=== PATIENT | female | born 1950 ===

== ENCOUNTER 2016-05-18 15:54 | Outpatient (CLI) | payer MEDICARE, BC | END 2016-05-18 15:55 | disposition home or self-care (01) | DX: M17.0 Bilateral primary osteoarthritis of knee (principal) ==

== ENCOUNTER 2016-08-07 08:44 | Inpatient (IN) | payer MEDICARE, BC ==
[~2016-08-07 08:44] MED LIST: ceFAZolin 2 GM/50 ML 50 ML IV ONE
[2016-08-07] MEDS ORDERED: LACTATED RINGERS 1,000 ML IV ONE ×3 (09:30→14:37)
[2016-08-07] MEDS ORDERED: KETOROLAC 15 MG/ML VIAL IVP ONE ×3 (11:45→14:38)
[2016-08-07] MEDS ORDERED: EPINEPHrine 1 MG/ML AMP IVP ONE ×2 (11:45→14:38)
[2016-08-07] MEDS ORDERED: BUPIVACAINE 0.25%-EPI 1:200000 PF 30 ML VIAL SUBQ ONE ×3 (11:45→15:17)
[2016-08-07] MEDS ORDERED: MORPHINE PF 5 MG/10 ML AMP SUBQ ONE ×2 (11:45→14:38)
[2016-08-07] MEDS ORDERED: ROPIVACAINE 0.2% PF 20 ML AMPULE SUBQ ONE ×2 (11:45→14:38)
[2016-08-07] MEDS ORDERED: PHENYLEPHRINE 50 MG/5 ML VIAL IV ONE (13:20)
[2016-08-07] MEDS ORDERED: DEXAMETHASONE 4 MG/ML VIAL IVP ONE (13:20)
[2016-08-07] MEDS ORDERED: KETOROLAC 30 MG/ML VIAL IVP ONE (13:20)
[2016-08-07] MEDS ORDERED: MIDAZOLAM 2 MG/2 ML VIAL IVP ONE (13:20)
[2016-08-07] MEDS ORDERED: ACETAMINOPHEN 1,000 MG/100 ML VIAL IV ONE (13:20)
[2016-08-07] MEDS ORDERED: TRANEXAMIC ACID 1,000 MG/10 ML VIAL IV ONE (13:20)
[2016-08-07] MEDS ORDERED: ePHEDrine 50 MG/ML AMP IVP ONE (13:20)
[2016-08-07] MEDS ORDERED: PROPOFOL 200 MG/20 ML VIAL IVP ONE (13:20)
[2016-08-07] MEDS ORDERED: PROPOFOL 1000 MG/100 ML IV ONE (13:20)
[2016-08-07] MEDS ORDERED: LIDOCAINE-MPF 2% 5 ML VIAL IM ONE (13:20)
--- NOTE | 2016-08-07 15:36 | OPERATIVE REPORT ---
Operative Report - General Admit Date: 08/07/16 Procedure Date: 08/07/16 Planned Procedure: Right Total Hip Arthroplasty Pre-Op Diagnosis: Right Hip Osteoarthritis Post Op Diagnosis: Same. - Procedure Note Primary Surgeon: Joseph Jimenez MD Anesthesia Provider: MD [place] Anesthesia Technique: Combo spinal/epidural, Local, Moderate sedation Pathology: Same. Estimated Blood Loss (in cc): 500 Complications: None. - Other Other Information/Narrative: Fluids: 2300 mL LR. Urine: 350 mL. Implants: G7 OsseoTi Acetabular Shell 4 Hole, 56 mm. G7 Acetabular Liner UHMWPE 36 mm ID Biomet Modular Head Component Standard Neck 36 mm OD Taperloc Porous Coated Stem, 10 x 140 mm, standard offset Disposition: PACU >> MedSur Condition: Stable.
[2016-08-07] MEDS ORDERED: DOCUSATE SODIUM 100 MG CAPSULE PO PRN (15:37)
[2016-08-07] MEDS ORDERED: ACETAMINOPHEN 325 MG TABLET PO PRN (15:37)
[2016-08-07] MEDS ORDERED: PROCHLORPERAZINE 10 MG/2 ML VIAL IVP PRN (15:37)
[2016-08-07] MEDS ORDERED: BISACODYL 10 MG SUPP PR PRN (15:37)
[2016-08-07] MEDS ORDERED: oxyCOD/ACETAMIN 5 MG/325 MG TABLET PO PRN (15:37)
[2016-08-07] MEDS ORDERED: ACETAMINOPHEN 1,000 MG/100 ML 100 ML IV PRN (15:37)
[2016-08-07] MEDS ORDERED: BISACODYL 5 MG TABLET PO PRN (15:37)
[2016-08-07] MEDS ORDERED: ONDANSETRON 4 MG/2 ML VIAL IVP PRN (15:37)
[2016-08-07] MEDS ORDERED: SODIUM CHLORIDE FLUSH 0.9% 10 ML SYRINGE IVP PRN (15:37)
[2016-08-07] MEDS ORDERED: ACYCLOVIR TOP PRN (15:41)
[2016-08-07] MEDS ORDERED: ALPRAZolam 0.25 MG TABLET PO PRN (15:41)
[2016-08-07] MEDS ORDERED: ALBUTEROL NEB 2.5 MG/3 ML INH PRN (15:41)
[2016-08-07] MEDS ORDERED: HYDROmorphone 1 MG/ML SYRINGE ONE (16:02)
[2016-08-07] MEDS: D5.45NS W/20 MEQ KCL 1,000 ML IV SCH (17:52)
[2016-08-07] MEDS ORDERED: diazePAM INJ 5 MG/ML SYRINGE IVP ONE (19:10)
[2016-08-07] MEDS: HYDROcod/ACETAM 5/325 MG TABLET PO PRN (19:15)
[2016-08-07] MEDS: DOXEPIN 10 MG CAPSULE PO SCH (20:36)
[2016-08-07] MEDS: GABAPENTIN 300 MG CAPSULE PO SCH (20:37)
[2016-08-07] MEDS: ceFAZolin 2 GM/50 ML 50 ML IV SCH (20:37)
[2016-08-07] MEDS: SODIUM CHLORIDE FLUSH 0.9% 10 ML SYRINGE IVP SCH (20:38)
[2016-08-07] MEDS: KETOROLAC 30 MG/ML VIAL IVP PRN (20:40)
--- NOTE | 2016-08-07 21:27 | XRAY Preliminary Report ---
Exam: XR Hip w/Pelvis 2-3V RT IMPRESSION: Satisfactory postoperative alignment after right hip joint replacement. RAD[facility] SITE ID: [id number]
--- NOTE | 2016-08-07 21:29 | XRAY Report ---
EXAM: RIGHT HIP AND PELVIS RADIOGRAPHY EXAM DATE: 08/07/2016 08:55 PM. HISTORY: Status Post Right Total Hip Arthroplasty. COMPARISONS: None. TECHNIQUE: 1 view of the pelvis and 1 view of the hip. FINDINGS: Bones: There is a right hip arthroplasty prosthesis. The surgical hardware appears intact. No fractur e demonstrated. Joints: Alignment of the right hip appears satisfactory. Soft Tissues: There is postoperative soft tissue gas. IMPRESSION: Satisfactory postoperative alignment after right hip joint replacement. PAULETTE Referring Provider Line: [phone] SITE ID: [id number]
[2016-08-07] MEDS: MORPHINE 2 MG/ML SYRINGE IVP PRN (22:29)
[2016-08-08] MEDS: HYDROcod/ACETAM 5/325 MG TABLET PO PRN ×2 (02:58→15:53)
[2016-08-08] MEDS: D5.45NS W/20 MEQ KCL 1,000 ML IV SCH (04:05)
[2016-08-08] MEDS: ceFAZolin 2 GM/50 ML 50 ML IV SCH (04:05)
[2016-08-08] MEDS: MORPHINE 2 MG/ML SYRINGE IVP PRN ×5 (04:13→22:49)
[2016-08-08] MEDS: LEVOTHYROXINE 25 MCG TABLET PO SCH (06:07)
[2016-08-08] MEDS: METHYLPHENIDATE 10 MG TABLET PO SCH ×3 (06:07→22:52)
[2016-08-08] MEDS: SODIUM CHLORIDE FLUSH 0.9% 10 ML SYRINGE IVP SCH ×3 (06:08→22:49)
[2016-08-08] MEDS: PANTOPRAZOLE 40 MG TABLET PO SCH (06:08)
[2016-08-08 06:28] LABS: HCT - HEMATOCRIT 29.3 % (37.0-47.0); HGB - HEMOGLOBIN 9.7 g/dL (12.0-16.0); LYMPHOCYTES # (AUTO) 0.8 10^3/uL (1.5-3.5); LYMPHOCYTES % (AUTO) 4.6 %; MEAN CORPUSCULAR HEMOGLOBIN 32.4 pg (27.0-31.0); MEAN CORPUSCULAR HGB CONC 33.2 g/dL (32.0-36.0); MEAN CORPUSCULAR VOLUME 97.6 fL (81.0-99.0); MEAN PLATELET VOLUME 8.7 fL (7.9-10.8); MONOCYTES # (AUTO) 1.1 10^3/uL (0.0-1.0); MONOCYTES % (AUTO) 6.7 %; NEUTROPHILS # (AUTO) 14.6 10^3/uL (1.5-6.6); NEUTROPHILS % (AUTO) 88.7 %; RED CELL DISTRIBUTION WIDTH 14.1 % (12.0-15.0); UNCORRECTED WHITE BLOOD COUNT 16.4 x10^3/uL; WHITE BLOOD COUNT 16.4 x10^3/uL (4.8-10.8)
[2016-08-08 06:39] LABS: BILIRUBIN,TOTAL 0.3 mg/dL (0.2-1.0); CALCIUM 8.1 mg/dL (8.5-10.3); CREATININE 0.7 mg/dL (0.4-1.0); POTASSIUM 4.6 mmol/L (3.5-5.0); TOTAL PROTEIN 5.1 g/dL (6.7-8.2)
--- NOTE | 2016-08-08 07:54 | CONSULTATION NOTE ---
DATE OF CONSULTATION: 08/07/2016 00:00:00 REQUESTING PROVIDER: Joseph Jimenez MD CHIEF COMPLAINT: Medical management status post left arthroplasty of the right total hip. HISTORY OF PRESENT ILLNESS: The patient is a very pleasant 65-year-old morbidly obese female who is u nder the care of Dr. Joseph Jimenez for chronic right hip pain and postop for right total hip arthro plasty. The patient has multiple comorbidities including chronic vision loss, chronic sinusitis, hype rtension, asthma, GERD, osteoarthritis, osteopenia, hypothyroidism, depression with anxiety for fili trophobia, seasonal allergies. Past surgical history including cholecystectomy and colonoscopy. At time of evaluation at bedside, patient was alert, oriented, in no acute distress. She did have romel e moderate pain to the right hip area from surgical procedure. She is taking [place], Toradol, and Perc ocet for her pain. Patient states that the Percocet does work, but does not last as long as it should . Patient states that she has lost 60 pounds over the course of the last several weeks and months and has been feeling much better and continues to try to lose more. She does have chronic pain issues an d osteoarthritis of multiple joints. She hopes that this surgery to the right hip is the only one she has to have, and this is what has helped her to lose more weight. The patient used to smoke, quit ab out 20 years ago. She does occasionally have a glass of wine. She does not use illicit drugs; however , she has used marijuana compounded in the creams for some of the pain she has had. She will be managed by the hospitalist team for her chronic comorbidities, and including the pain cecilio t she is undergoing. Physical and Occupational Therapy will be working with her to get her up and out of the bed and patient will probably be discharged to a rehab facility for further evaluation and fo r deconditioning. ALLERGIES 1. CLINDAMYCIN. 2. LEVOFLOXACIN. 3. SULFA. 4. ESTROGEN CONJUGATED FROM PREMPRO. HOME MEDICATIONS 1. Advair. 2. Albuterol. 3. Alprazolam. 4. Flonase. 5. Lisinopril. 6. Magnesium citrate. 7. Minocin. 8. Naproxen. 9. [place]. 10. Prilosec. 11. Prozac. 12. Ritalin. 13. Sinequan. 14. Synthroid. 15. Theragran. 16. Zovirax. PAST MEDICAL HISTORY 1. Morbid obesity. 2. Hypertension. 3. Hypothyroidism. 4. Past marijuana usage, topical for chronic pain. 5. Osteoarthritis of multiple sites. 6. Mixed hyperlipidemia. 7. GERD. 8. Chronic pain. 9. Asthma. 10. Chronic sinusitis. 11. Generalized anxiety disorder with depression. 12. Rosacea. PAST SURGICAL HISTORY 1. Rhinoplasty. 2. Dissecting knee scope. 3. Hysterectomy. 4. Oophorectomy. 5. Spine surgery. 6. Colonoscopy. 7. Cholecystectomy. PAST FAMILY HISTORY: The patient states that both of her parents were obese and had hypertension. SOCIAL HISTORY: The patient does drink wine on occasion. Is a past smoker, quit 20 years ago, and has in the past used marijuana creams for pain, but does not smoke it socially. REVIEW OF SYSTEMS: Ten system systems reviewed, negative with the exception as discussed in the HPI p rior. She is positive for pain to the right hip and occasional nausea. She is negative for chest pain , shortness of breath, vomiting, constipation, numbness, tingling to extremities, headache, blurry vi bhargav, dizziness, or lightheadedness. PHYSICAL EXAMINATION CONSTITUTIONAL: Patient is alert, morbidly obese, pleasant female. EYES: Pupils were equal, round and react to light and accommodation. Conjunctivae and sclerae nonicte melodie, not injected. ENT: Nares are patent. No nasal discharge. OROPHARYNX: No masses, exudates or lesions. Mucous membranes are moist. NECK: NECK: Supple. No thyromegaly. CARDIOVASCULAR: S1, S2 noted. No gallops, murmurs, or rubs. RESPIRATORY: Breath sounds were clear and equal bilaterally to auscultation and percussion, no retrac tions or nasal flaring. GASTROINTESTINAL: Abdomen is obese, soft, nontender. No guarding or rebound. NEUROLOGICAL: The patient is alert, GCS 15. Cranial nerves 2 through 12 grossly intact. Sensory is in tact. SKIN: Warm, dry, intact. Normal turgor. No evidence of rashes, lesions, or cellulitis noted. Dry, int act bandage to right upper hip. MUSCULOSKELETAL/EXTREMITIES: No pedal edema, 2+ pulses to upper and lower extremities. Noted limited movement with right hip and leg with pain with palpation to the right hip and a bandage which is dry and intact. Motor is 5/5 to upper extremities and 3/5 to lower extremities, with 3 being on the right side. HEMATOLOGIC: No active bleeding. Patient is hemodynamically stable. LYMPHATICS: No cervical, axillary, or supraclavicular lymphadenopathy. VITAL SIGNS: Temperature is 36.7, heart rate 68, blood pressure 110/60, respirations 16, oxygen satur ations 94% on room air. GENITOURINARY: No CVA tenderness. No masses were palpated. No bladder distention, even though patient does have a large pannus and it was difficult to palpate for bladder distention. LABORATORY AND DIAGNOSTIC DATA: I personally reviewed all laboratory and diagnostic data in the medic al records. They were reviewed, they were not reviewed with a provider. Pending CBC and CMP at this t edy. IMAGING: Hip and pelvis x-ray: Impression shows satisfactory postoperative alignment after right hip joint replacement. IMPRESSION 1. Chronic right hip pain with osteoarthritis secondary to right total hip arthroplasty. 2. Morbid obesity with excessive caloric intake. 3. Planned weight loss of 60 pounds. 4. Chronic asthma, unspecified. 5. Gastroesophageal reflux disease. 6. Essential benign hypertension with tobacco abuse in remission. 7. Hypothyroidism, unspecified. 8. Generalized anxiety disorder with depression. PLAN 1. Continue patient's Xanax as needed for anxiety. 2. Continue with Colace for stool softener, as patient will be taking multiple pain medications that are primarily narcotics, continue with the Toradol when possible. 3. Continue with Protonix 40 mg daily. 4. Continue on Synthroid. Thyroid panel recommended. 5. Continue on Neurontin for neuropathic pain. 6. Continue on Prozac home dosage for anxiety and depression. 7. Compazine for nausea along with Zofran. 8. Continue with DVT prophylaxis 40 mg subcutaneous daily. 9. Continue with Ofirmev for fever and mild pain along with [place] for moderate pain and morphine 2 m g IVP q.2 hours for severe pain. 10. Continue with respiratory therapy support for history of asthma and continue home medications as needed for asthma. Time spent on consultation with patient was approximately 50 minutes for assessment, education, plann ing Thank you for your kind referral. We will continue to follow with you. JOB #: [id number] EXT JOB #:[id number]
--- NOTE | 2016-08-08 08:28 | PROVIDER PROGRESS NOTE ---
Assessment/Plan - Problem List (1) S/P total hip arthroplasty Qualifiers: Laterality: right Qualified Code(s): Z96.641 - Presence of right artificial hip joint Assessment/Plan: improving. patient is working with PT and OT for ambulation. continue with pain medication. ortho advising for primary (2) Morbid (severe) obesity due to excess calories Assessment/Plan: improving. patient has lost 60 pounds. continue to encourage weight loss and provide diet/lifestyle changes including low inflammation diet at bedside. (3) GERD (gastroesophageal reflux disease) Qualifiers: Esophagitis presence: without esophagitis Qualified Code(s): K21.9 - Gastro -esophageal reflux disease without esophagitis Assessment/Plan: stable. continue on PPI (4) Osteoarthritis involving multiple joints on both sides of body Assessment/Plan: chronic, continue on pain medication from home and include toradol IV as needed. PT and OT. (5) Hypertension Qualifiers: Hypertension type: other secondary hypertension Qualified Code(s): I15.8 - Other secondary hypertension Assessment/Plan: chronic with endocrine disorders, hypothyroidism. continue on blood pressure medications and thyroid medications - Current Meds Current Meds: Current Medications Generic Name Dose Route Start Last Admin Trade Name Freq PRN Reason Stop Dose Admin Acetaminophen/Hydrocodone Bitart 2 tab 08/07/16 18:45 08/08/16 02:58 [place] 5/325 PO 2 tab Q8H PRN Administration PAIN Doxepin HCl 30 mg 08/07/16 21:00 08/07/16 20:36 Sinequan PO 30 mg QPM CHIRAG Administration Gabapentin 300 mg 08/07/16 21:00 08/07/16 20:37 Neurontin PO 300 mg QPM CHIRAG Administration Potassium Chloride/Dextrose/Sod Cl 1,000 mls @ 100 mls/hr 08/07/16 17:00 04:05 D5.45ns W/20 Meq Kcl IV 100 mls/hr .Q10H CHIRAG Administration Acetaminophen 100 mls @ 400 mls/hr 08/07/16 15:37 08/07/16 20:36 Ofirmev IV 400 mls/hr Q6HR PRN Administration PAIN Ketorolac Tromethamine 30 mg 08/07/16 15:44 08/07/16 20:40 Toradol Inj IVP 08/12/16 15:43 30 mg Q6HR PRN Administration PAIN Levothyroxine Sodium 50 mcg 08/08/16 07:00 08/08/16 06:07 Synthroid PO 50 mcg QDAC CHIRAG Administration Methylphenidate HCl 10 mg 08/08/16 06:00 08/08/16 06:07 Ritalin PO 10 mg TID CHIRAG Administration Morphine Sulfate 2 mg 08/07/16 21:46 08/08/16 04:13 Morphine IVP 2 mg Q2HR PRN Administration PAIN Pantoprazole Sodium 40 mg 08/08/16 07:00 08/08/16 06:08 Protonix PO 40 mg QDAC CHIRAG Administration Sodium Chloride 10 ml 08/07/16 22:00 08/08/16 06:08 Normal Saline Flush 0.9% IVP Not Given Q8HR CHIRAG - Lab Result Lab results reviewed: Yes Fish Bone Diagrams: 08/08/16 05:57 08/08/16 05:57 Other Lab Results: Abnormal Lab Results 08/08/16 08/08/16 08/08/16 05:57 05:57 08:07 WBC 16.4 x10^3/uL H x10^3/uL (4.8-10.8) RBC 3.00 10^6/uL L 10^6/uL (4.20-5.40) Hgb 9.7 g/dL L g/dL (12.0-16.0) Hct 29.3 % L % (37.0-47.0) MCH 32.4 pg H pg (27.0-31.0) Neut # 14.6 10^3/uL H 10^3/uL (1.5-6.6) Lymph # 0.8 10^3/uL L 10^3/uL (1.5-3.5) [place] # 1.1 10^3/uL H 10^3/uL (0.0-1.0) BUN 21 mg/dL H mg/dL (6-20) Estimated GFR (MDRD) 83 L (>89) Glucose 165 mg/dL H mg/dL (70-100) POC Whole Bld Glucose 148 mg/dL H mg/dL (70 - 100) Calcium 8.1 mg/dL L mg/dL (8.5-10.3) Total Protein 5.1 g/dL L g/dL (6.7-8.2) Albumin 2.6 g/dL L g/dL (3.2-5.5) - EKG Results EKG Interpreted Independently: No - Additional Planning Condition/Complexity: Improved My Orders: My Active Orders 08/07/16 18:45 HYDROcod/ACETAM 5/325 [[place] 5/325] 2 tab PO Q8H PRN 08/07/16 21:00 Gabapentin [Neurontin] 300 mg PO QPM 08/08/16 08:17 FERRITIN [IAI] Routine IRON TIBC PANEL [CHEM] Routine LDH - LACTATE DEHYDROGENASE [CHEM] Routine RETIC [HEME] Routine VITAMIN B12 [IAI] Routine 08/08/16 08:18 A1C [CHEM] Routine 08/08/16 Breakfast Carb-controlled Diet [DIET] Consult/Specialty: OT, PT, Surgery Plan Discussed with:: Patient, Family Time Spent: 31-60 minutes Additional Planning Notes: Patient will need at least 48 hours more for deconditioning and PT OT assistance. She is high risk for worsening co morbid conditions and will require IV medication with high risk for toxicity. Subjective - Subjective Patient Reports: Feeling Better, Resting Comfortably, No Complaints Nursing Reports: Pain (pain controled with norco and percocet PO) Objective Vital Signs: Vital Signs - 24 hr 08/07/16 08/07/16 08/07/16 09:02 15:28 15:35 Temperature 36.1 C L Heart Rate Heart Rate [ 60 Brachial] Respiratory 18 Rate Blood Pressure 143/72 H [Brachial artery] O2 Saturation 100 16 L 100 08/07/16 08/07/16 08/07/16 15:40 15:45 15:50 Temperature Heart Rate Heart Rate [ Brachial] Respiratory Rate Blood Pressure [Brachial artery] O2 Saturation 100 100 100 08/07/16 08/07/16 08/07/16 15:55 16:00 16:05 Temperature Heart Rate Heart Rate [ Brachial] Respiratory Rate Blood Pressure [Brachial artery] O2 Saturation 100 100 98 08/07/16 08/07/16 08/07/16 16:10 16:15 16:25 Temperature Heart Rate Heart Rate [ Brachial] Respiratory Rate Blood Pressure [Brachial artery] O2 Saturation 97 97 99 08/07/16 08/07/16 08/07/16 16:30 17:07 18:07 Temperature 36.5 C 36.3 C L 36.5 C Heart Rate Heart Rate [ 43 L 47 L 52 L Brachial] Respiratory 20 18 18 Rate Blood Pressure 136/75 H 139/75 H 123/69 [Brachial artery] O2 Saturation 3 L 3 L 3 L 08/07/16 08/07/16 08/08/16 18:55 21:35 01:00 Temperature 36.4 C L 36.7 C Heart Rate 68 Heart Rate [ 67 68 Brachial] Respiratory 18 20 16 Rate Blood Pressure 104/64 110/60 [Brachial artery] O2 Saturation 3 L 94 08/08/16 05:00 Temperature 36.7 C Heart Rate Heart Rate [ 63 Brachial] Respiratory 16 Rate Blood Pressure 123/78 [Brachial artery] O2 Saturation 97 Oxygen O2 Source Room air I&O (Last 24 Hrs): Intake and Output Totals x24h 08/06/16 08/07/16 08/08/16 23:59 23:59 23:59 Intake Total 2500 1291 Output Total 800 550 Balance 1700 741 General: Alert, Oriented x3, Cooperative, No acute distress HEENT: PERRLA Neck: Supple, No JVD Lymphatic: no adenopathy Neuro: Alert, Non Focal, CN 2-12 Grossly Intact, Oriented Times 3 Cardiovascular: Regular rate, Normal S1, Normal S2 Respiratory: Chest non-tender, No respiratory distress, Breath sounds nml Abdomen: Normal bowel sounds, Soft, No tenderness, No masses Genitourinary: No Bleeding Extremities: No clubbing, No cyanosis, No edema, Normal pulses, Other (pain to right hip with movement and palpation. dressing clean and dry) Skin: No rashes, No breakdown, No significant lesion - Results Results: Laboratory Results WBC 16.4 x10^3/uL (4.8-10.8) H 08/08/16 05:57 RBC 3.00 10^6/uL (4.20-5.40) L 08/08/16 05:57 Hgb 9.7 g/dL (12.0-16.0) L 08/08/16 05:57 Hct 29.3 % (37.0-47.0) L 08/08/16 05:57 MCV 97.6 fL (81.0-99.0) 08/08/16 05:57 MCH 32.4 pg (27.0-31.0) H 08/08/16 05:57 MCHC 33.2 g/dL (32.0-36.0) 08/08/16 05:57 RDW 14.1 % (12.0-15.0) 08/08/16 05:57 Plt Count 142 10^3/uL (130-450) 08/08/16 05:57 MPV 8.7 fL (7.9-10.8) 08/08/16 05:57 Neut # 14.6 10^3/uL (1.5-6.6) H 08/08/16 05:57 Lymph # 0.8 10^3/uL (1.5-3.5) L 08/08/16 05:57 [place] # 1.1 10^3/uL (0.0-1.0) H 08/08/16 05:57 Eos # 0.0 10^3/uL (0.0-0.7) 08/08/16 05:57 Baso # 0.0 10^3/uL (0.0-0.1) 08/08/16 05:57 Absolute Nucleated RBC 0.00 x10^3/uL 08/08/16 05:57 Nucleated RBCs 0.0 /100WBC 08/08/16 05:57 Sodium 137 mmol/L (135-145) 08/08/16 05:57 Potassium 4.6 mmol/L (3.5-5.0) 08/08/16 05:57 Chloride 103 mmol/L (101-111) 08/08/16 05:57 Carbon Dioxide 26 mmol/L (21-32) 08/08/16 05:57 Anion Gap 8.0 (6-13) 08/08/16 05:57 BUN 21 mg/dL (6-20) H 08/08/16 05:57 Creatinine 0.7 mg/dL (0.4-1.0) 08/08/16 05:57 Estimated GFR (MDRD) 83 (>89) L 08/08/16 05:57 Glucose 165 mg/dL (70-100) H 08/08/16 05:57 POC Whole Bld Glucose 148 mg/dL (70 - 100) H 08/08/16 08:07 Calcium 8.1 mg/dL (8.5-10.3) L 08/08/16 05:57 Total Bilirubin 0.3 mg/dL (0.2-1.0) 08/08/16 05:57 AST 20 IU/L (10-42) 08/08/16 05:57 ALT 16 IU/L (10-60) 08/08/16 05:57 Alkaline Phosphatase 53 IU/L (42-121) 08/08/16 05:57 Total Protein 5.1 g/dL (6.7-8.2) L 08/08/16 05:57 Albumin 2.6 g/dL (3.2-5.5) L 08/08/16 05:57 Globulin 2.5 g/dL (2.1-4.2) 08/08/16 05:57 Albumin/Globulin Ratio 1.0 (1.0-2.2) 08/08/16 05:57
[2016-08-08 08:38] LABS: IMMATURE RETIC FRACTION 0.4; RED BLOOD COUNT 2.97 10^6/uL (4.20-5.40)
[2016-08-08] MEDS: MULTIVITAMIN TABLET PO SCH (08:53)
[2016-08-08] MEDS: FLUoxetine 10 MG CAPSULE PO SCH (08:53)
[2016-08-08] MEDS: LISINOPRIL 5 MG TABLET PO SCH (08:54)
[2016-08-08] MEDS: ENOXAPARIN 40 MG/0.4 ML SYRINGE SUBQ SCH (08:54)
[2016-08-08] MEDS ORDERED: MAGNESIUM CITRATE 200 MG PO SCH (09:00)
[2016-08-08 09:02] LABS: IRON 14 ug/dL (28-170); TOTAL IRON BINDING CAPACITY 287 ug/dL (250-450); TRANSFERRIN 205 mg/dL (192-382)
[2016-08-08 09:03] LABS: HEMOGLOBIN A1C 0.39 g/dL
[2016-08-08 09:20] LABS: FERRITIN 77.9 ng/mL (11.0-306.8)
[2016-08-08] MEDS: MINOCYCLINE HCL 100 MG PO SCH (11:13)
[2016-08-08] MEDS ORDERED: IRON SUCROSE 200 MG in SODIUM CHLORIDE 0.9% 100ML 100 ML IV ONE (12:30)
[2016-08-08] MEDS: KETOROLAC 30 MG/ML VIAL IVP PRN (15:53)
[2016-08-08] MEDS: GABAPENTIN 300 MG CAPSULE PO SCH (22:48)
[2016-08-08] MEDS: DOXEPIN 10 MG CAPSULE PO SCH (22:48)
[2016-08-09] MEDS: MORPHINE 2 MG/ML SYRINGE IVP PRN (03:40)
[2016-08-09] MEDS: LEVOTHYROXINE 25 MCG TABLET PO SCH (06:54)
[2016-08-09] MEDS: SODIUM CHLORIDE FLUSH 0.9% 10 ML SYRINGE IVP SCH ×3 (06:54→19:16)
[2016-08-09] MEDS: METHYLPHENIDATE 10 MG TABLET PO SCH ×3 (06:54→20:39)
[2016-08-09] MEDS: HYDROcod/ACETAM 5/325 MG TABLET PO PRN ×3 (06:55→20:39)
[2016-08-09] MEDS: PANTOPRAZOLE 40 MG TABLET PO SCH (06:55)
[2016-08-09] MEDS: MINOCYCLINE HCL 100 MG PO SCH (08:07)
[2016-08-09] MEDS: FLUoxetine 10 MG CAPSULE PO SCH (08:07)
[2016-08-09] MEDS: ENOXAPARIN 40 MG/0.4 ML SYRINGE SUBQ SCH (08:07)
[2016-08-09] MEDS: LISINOPRIL 5 MG TABLET PO SCH (08:07)
[2016-08-09] MEDS: FERROUS SULFATE 325 MG TABLET PO SCH (08:07)
[2016-08-09] MEDS: MULTIVITAMIN TABLET PO SCH (08:07)
--- NOTE | 2016-08-09 16:10 | PROVIDER PROGRESS NOTE ---
Assessment/Plan - Problem List (1) S/P total hip arthroplasty Qualifiers: Laterality: right Qualified Code(s): Z96.641 - Presence of right artificial hip joint Assessment/Plan: PT is improving but continues to have post operative pain. Her goal is to discharge to home. She has a lot of support with family and feels she will do well in this environment. Plan: Pain medication changed to Q6H. She is having a lot of breakthrough ain and needing IV medication for help. Anticipate discharge in 1-2 days with goal of going home with family support and OP PT. (2) GERD (gastroesophageal reflux disease) Qualifiers: Esophagitis presence: without esophagitis Qualified Code(s): K21.9 - Gastro -esophageal reflux disease without esophagitis Assessment/Plan: Controlled on PPI. Pt would benefit form wt loss to decrease shawn amount of reflux. She is working on wt loss and has lost >60 lbs (3) Hypertension, essential, benign Assessment/Plan: Controlled on current medications. Continue routine VS. No changes to medications today. PT encouraged to continue lifestyle changes and wt reduction. (4) Morbid (severe) obesity due to excess calories Assessment/Plan: PT has been working on wt loss and is down a total of 60 lbs. She understands she has a long way to go adn is motivated to continue (5) Osteoarthritis involving multiple joints on both sides of body Assessment/Plan: Long HX of associated pain. PT is working on wt loss which is the most important thing she can do to manage her pain. - Current Meds Current Meds: Current Medications Generic Name Dose Route Start Last Admin Trade Name Freq PRN Reason Stop Dose Admin Acetaminophen/Hydrocodone Bitart 2 tab 08/09/16 10:42 08/09/16 13:19 [place] 5/325 PO 2 tab Q6H PRN Administration PAIN Doxepin HCl 30 mg 08/07/16 21:00 08/08/16 22:48 Sinequan PO 30 mg QPM CHIRAG Administration Enoxaparin Sodium 40 mg 08/08/16 09:00 08/09/16 08:07 Lovenox SUBQ 40 mg DAILY CHIRAG Administration Ferrous Sulfate 325 mg 08/09/16 08:00 08/09/16 08:07 Feosol PO 325 mg DAILYWM CHIRAG Administration Fluoxetine HCl 20 mg 08/08/16 09:00 08/09/16 08:07 Prozac PO 20 mg DAILY CHIRAG Administration Gabapentin 300 mg 08/07/16 21:00 08/08/16 22:48 Neurontin PO 300 mg QPM CHIRAG Administration Acetaminophen 100 mls @ 400 mls/hr 08/07/16 15:37 08/07/16 20:36 Ofirmev IV 400 mls/hr Q6HR PRN Administration PAIN Ketorolac Tromethamine 30 mg 08/07/16 15:44 08/08/16 15:53 Toradol Inj IVP 08/12/16 15:43 30 mg Q6HR PRN Administration PAIN Levothyroxine Sodium 50 mcg 08/08/16 07:00 08/09/16 06:54 Synthroid PO 50 mcg QDAC CHIRAG Administration Lisinopril 10 mg 08/08/16 09:00 08/09/16 08:07 Zestril PO Not Given DAILY CHIRAG Methylphenidate HCl 10 mg 08/08/16 06:00 08/09/16 13:20 Ritalin PO Not Given TID CHIRAG Morphine Sulfate 2 mg 08/07/16 21:46 08/09/16 03:40 Morphine IVP 2 mg Q2HR PRN Administration PAIN Multivitamins 1 tab 08/08/16 09:00 08/09/16 08:07 Theragran PO 1 tab DAILY CHIRAG Administration Non-Formulary Medication 100 mg 08/08/16 09:00 08/09/16 08:07 Minocycline Hcl [Minocin] PO Not Given DAILY CHIRAG Pantoprazole Sodium 40 mg 08/08/16 07:00 08/09/16 06:55 Protonix PO 40 mg QDAC CHIRAG Administration Sodium Chloride 10 ml 08/07/16 15:37 08/09/16 03:41 Normal Saline Flush 0.9% IVP 10 ml PRN PRN Administration NEEDED PER PROVIDER ORDERS Sodium Chloride 10 ml 08/07/16 22:00 08/09/16 13:20 Normal Saline Flush 0.9% IVP 10 ml Q8HR CHIRAG Administration - Lab Result Fish Bone Diagrams: 08/08/16 05:57 08/08/16 05:57 - Additional Planning Condition/Complexity: Stable My Orders: My Active Orders 08/09/16 10:42 HYDROcod/ACETAM 5/325 [[place] 5/325] 2 tab PO Q6H PRN Plan Discussed with:: Patient, Family Time Spent: 15-30 minutes Subjective - Subjective Patient Reports: Feeling Better, Pain (continues to have poorly controlled pain. She is on chronic pain medications at home) Nursing Reports: Pain Objective Vital Signs: Vital Signs - 24 hr 08/08/16 08/08/16 08/08/16 16:25 20:25 21:05 Temperature 36.6 C 36.6 C Heart Rate 67 Heart Rate [ 69 62 Brachial] Respiratory 16 20 18 Rate Blood Pressure 94/57 L 97/63 [Left Brachial artery] O2 Saturation 97 97 08/09/16 08/09/16 08/09/16 00:35 04:26 07:48 Temperature 36.6 C 36.7 C 36.8 C Heart Rate Heart Rate [ 56 L 67 76 Brachial] Respiratory 18 16 16 Rate Blood Pressure 104/68 107/68 104/68 [Left Brachial artery] O2 Saturation 99 95 96 08/09/16 12:00 Temperature 36.4 C L Heart Rate Heart Rate [ 89 Brachial] Respiratory 18 Rate Blood Pressure 121/73 [Left Brachial artery] O2 Saturation 96 Oxygen O2 Source Room air I&O (Last 24 Hrs): Intake and Output Totals x24h 08/07/16 08/08/16 08/09/16 23:59 23:59 23:59 Intake Total 2500 1931 550 Output Total 800 1050 200 Balance 1700 881 350 General: Alert, Oriented x3, No acute distress HEENT: PERRLA, EOMI Neck: Supple Neuro: Alert, CN 2-12 Grossly Intact Cardiovascular: Regular rate, No murmurs Respiratory: Chest non-tender, No respiratory distress, Breath sounds nml Abdomen: Normal bowel sounds Extremities: No clubbing, No edema, Normal pulses Skin: No rashes - Results Results: Laboratory Results WBC 16.4 x10^3/uL (4.8-10.8) H 08/08/16 05:57 RBC 2.97 10^6/uL (4.20-5.40) L 08/08/16 05:57 Hgb 9.7 g/dL (12.0-16.0) L 08/08/16 05:57 Hct 29.3 % (37.0-47.0) L 08/08/16 05:57 MCV 97.6 fL (81.0-99.0) 08/08/16 05:57 MCH 32.4 pg (27.0-31.0) H 08/08/16 05:57 MCHC 33.2 g/dL (32.0-36.0) 08/08/16 05:57 RDW 14.1 % (12.0-15.0) 08/08/16 05:57 Plt Count 142 10^3/uL (130-450) 08/08/16 05:57 MPV 8.7 fL (7.9-10.8) 08/08/16 05:57 Reticulocyte % (Auto) 1.36 % (0.5-2.3) 08/08/16 05:57 Neut # 14.6 10^3/uL (1.5-6.6) H 08/08/16 05:57 Lymph # 0.8 10^3/uL (1.5-3.5) L 08/08/16 05:57 [place] # 1.1 10^3/uL (0.0-1.0) H 08/08/16 05:57 Eos # 0.0 10^3/uL (0.0-0.7) 08/08/16 05:57 Baso # 0.0 10^3/uL (0.0-0.1) 08/08/16 05:57 Absolute Nucleated RBC 0.00 x10^3/uL 08/08/16 05:57 Nucleated RBCs 0.0 /100WBC 08/08/16 05:57 Absolute Retic 0.040 10^6/uL (0.020-0.110) 08/08/16 05:57 Sodium 137 mmol/L (135-145) 08/08/16 05:57 Potassium 4.6 mmol/L (3.5-5.0) 08/08/16 05:57 Chloride 103 mmol/L (101-111) 08/08/16 05:57 Carbon Dioxide 26 mmol/L (21-32) 08/08/16 05:57 Anion Gap 8.0 (6-13) 08/08/16 05:57 BUN 21 mg/dL (6-20) H 08/08/16 05:57 Creatinine 0.7 mg/dL (0.4-1.0) 08/08/16 05:57 Estimated GFR (MDRD) 83 (>89) L 08/08/16 05:57 Glucose 165 mg/dL (70-100) H 08/08/16 05:57 POC Whole Bld Glucose 133 mg/dL (70 - 100) H 08/08/16 22:10 Glycated Hemoglobin 5.8 % (4.6-6.2) 08/08/16 05:57 Estim Average Glucose 120 (70-100) H 08/08/16 05:57 Calcium 8.1 mg/dL (8.5-10.3) L 08/08/16 05:57 Iron 14 ug/dL (28-170) L 08/08/16 05:57 TIBC 287 ug/dL (250-450) 08/08/16 05:57 % Saturation 5 % (20-50) L 08/08/16 05:57 Transferrin 205 mg/dL (192-382) 08/08/16 05:57 Ferritin 77.9 ng/mL (11.0-306.8) 08/08/16 05:57 Total Bilirubin 0.3 mg/dL (0.2-1.0) 08/08/16 05:57 AST 20 IU/L (10-42) 08/08/16 05:57 ALT 16 IU/L (10-60) 08/08/16 05:57 Alkaline Phosphatase 53 IU/L (42-121) 08/08/16 05:57 Lactate Dehydrogenase 153 IU/L (91-225) 08/08/16 05:57 Total Protein 5.1 g/dL (6.7-8.2) L 08/08/16 05:57 Albumin 2.6 g/dL (3.2-5.5) L 08/08/16 05:57 Globulin 2.5 g/dL (2.1-4.2) 08/08/16 05:57 Albumin/Globulin Ratio 1.0 (1.0-2.2) 08/08/16 05:57 Vitamin B12 826 pg/mL (180-914) 08/08/16 05:57
[2016-08-09] MEDS: KETOROLAC 30 MG/ML VIAL IVP PRN (19:16)
[2016-08-09] MEDS: DOXEPIN 10 MG CAPSULE PO SCH (20:39)
[2016-08-09] MEDS: GABAPENTIN 300 MG CAPSULE PO SCH (20:39)
[2016-08-10] MEDS: LEVOTHYROXINE 25 MCG TABLET PO SCH (06:51)
[2016-08-10] MEDS: SODIUM CHLORIDE FLUSH 0.9% 10 ML SYRINGE IVP SCH (06:51)
[2016-08-10] MEDS: METHYLPHENIDATE 10 MG TABLET PO SCH (06:51)
[2016-08-10] MEDS: PANTOPRAZOLE 40 MG TABLET PO SCH (06:52)
[2016-08-10 08:06] VITALS: BP 118/72
[2016-08-10] MEDS: LISINOPRIL 5 MG TABLET PO SCH (08:55)
[2016-08-10] MEDS: MULTIVITAMIN TABLET PO SCH (08:55)
[2016-08-10] MEDS: ENOXAPARIN 40 MG/0.4 ML SYRINGE SUBQ SCH (08:56)
[2016-08-10] MEDS: FLUoxetine 10 MG CAPSULE PO SCH (08:56)
[2016-08-10] MEDS: MINOCYCLINE HCL 100 MG PO SCH (08:56)
[2016-08-10] MEDS: FERROUS SULFATE 325 MG TABLET PO SCH (08:56)
--- NOTE | 2016-08-10 11:14 | Discharge Plan ---
Discharge Plan Disposition: Home, Self Care Condition: Good Prescriptions: Gabapentin [Neurontin] 300 mg PO QPM #30 capsule Diet: Regular Activity Restrictions: Wt Bearing as Tolerated Weight Bearing: Full Weight Additional Instructions or Follow Up instructions: Follow up with orthopedic surgery as directed. Follow up with PCP in 1-2 weeks No Smoking: If you smoke, Please STOP! Call for help. Follow-up with: ROSINA BOYER [Primary Care Provider] - 2 Weeks
--- NOTE | 2016-08-10 15:06 | DISCHARGE SUMMARY ---
DATE OF ADMISSION: 08/07/2016 DATE OF DISCHARGE: 08/10/2016 DISCHARGING PROVIDER: Alen Goodman PA-C [facility]OSP[facility] ATTENDING: Joseph Jimenez MD PRIMARY CARE PROVIDER: Krzysztof Perez MD ADMITTING DIAGNOSES 1. Chronic pain and osteoarthritis of right hip. 2. Morbid obesity. 3. Chronic asthma. 4. Gastroesophageal reflux disease. 5. Essential benign hypertension. 6. Hypothyroidism. 7. Generalized anxiety disorder with depression. DISCHARGE DIAGNOSES 1. Chronic right hip pain with osteoarthritis: a. Status post total right hip arthroplasty without complication. 2. Morbid obesity. 3. Chronic asthma. 4. Gastroesophageal reflux disease. 5. Essential hypertension. 6. Hypothyroidism. 7. Generalized anxiety disorder. BRIEF HISTORY OF PRESENT ILLNESS: For specifics, please see admission. This is a patient with morbid obesity and chronic hip pain secondary to osteoarthritis who had been seen in outpatient consultation with Dr. Joseph Jimenez. They planned for total right knee arthroplasty. COURSE IN CENTER: Patient was admitted, as scheduled, for right hip arthroplasty. Procedure was performed on August 07, 2016. There were no complications or difficulties throughout the operation and in the postoperative period. Following surgery, the patient was admitted to the medical/surgical floor for continued management. The patient participated in physical therapy as directed. She had no difficulties or complications. She made excellent progress. Her pain was well controlled on medications. She did not take excess narcotic pain medication. Hospitalist team was asked for consultation to help manage her pain and other medical conditions on August 08, 2016. At time of discharge, the patient was doing well. She was mobilizing as directed by Physical Therapy. She had no significant pain associated with her postoperative period. She remained afebrile throughout the course of her stay, there were no signs of infection, bleeding or dehiscence of the wound. X-ray showed satisfactory postoperative alignment after right hip joint replacement. DISCHARGE MEDICATIONS 1. Tylenol 650 mg q.4h. as needed. 2. Hydrocodone/acetaminophen 5/325, 1 to 2 tablets q.8h. as needed. 3. Xanax 0.25 mg p.o. daily as needed for anxiety. 4. Prozac 20 mg daily. 5. Gabapentin 300 mg t.i.d. 6. Lisinopril 10 mg daily. 7. Synthroid 50 mcg q.a.m. 8. Prilosec 20 mg daily. 9. Multivitamin daily. 10. Ritalin 10 mg t.i.d. DISPOSITION 1. She will be discharged home with assistance of family, outpatient physical therapy and occupational therapy. 2. Follow up with primary care provider in 1-2 weeks. 3. Follow up with Orthopedic Surgery, Dr. Jimenez, in 2 weeks as scheduled. 4. Activity as tolerated with weightbearing as tolerated. Encouraged increasing activity. PHYSICAL EXAMINATION ON DISCHARGE GENERAL: Pleasant, cooperative, in no acute distress. HEENT: Normocephalic, atraumatic. Pupils equal, round, reactive to light. EOMs intact. NECK: Without JVD elevation. CHEST: Clear to auscultation. CARDIOVASCULAR: Regular rate and rhythm. ABDOMEN: Benign. EXTREMITIES: Pedal pulses present and equal bilaterally. No edema or ulcerations. Right hip incision clean, dry and intact. NEUROLOGIC: Cranial nerves 2 through 12 grossly intact. PSYCHIATRIC: Mood and affect appropriate. Thank you for the opportunity to participate in the care of the patient and all her medical needs. Greater then 30 minutes was spent in discharging patient to include decision making and counseling. 13:9:00 JOB #: [id number] EXT JOB #:[id number]
--- NOTE | 2016-09-07 02:58 | OPERATIVE REPORT ---
DATE OF SURGERY: 08/07/2016 00:00:00 PREOPERATIVE DIAGNOSIS: Right hip osteoarthritis. POSTOPERATIVE DIAGNOSIS: Right hip osteoarthritis. PROCEDURE: Right total hip arthroplasty. SURGEON: Joseph Jimenez MD. ANESTHESIA PROVIDER: MD [place]. ANESTHESIA TECHNIQUE: Combination of spinal/epidural, local, and moderate sedation. PATHOLOGY: Same. ESTIMATED BLOOD LOSS: 500 mL. COMPLICATIONS: None. FLUIDS: 2300 mL of Lactated Ringer's. URINE: 350 mL. IMPLANTS 1. G7 Jupiter titanium acetabular shell 4-hole, 56 mm outer diameter. 2. G7 acetabular liner, UHMWPE 36 mm inner diameter. 3. Biomet modular head component, standard neck with 36 mm outer diameter. 4. Taperloc porous coated stem, size 10 x 140 mm, standard offset. DISPOSITION: PACU then Med/Surg. CONDITION AT END OF PROCEDURE: Stable. INDICATIONS: This is a 66-year-old obese female with multiple medical problems and a longstanding his tory of progressively worsening severe right hip osteoarthritis. Despite cane and other ambulatory ai hipolito, as well as over the counter analgesic medications and prescription narcotic analgesics, as well as physical therapy and activity modification, she is bothered by pain that is uncontrolled at night and prevents her from doing many of her activities including exercise. After prolonged discussion with the patient, we have elected to proceed with right total hip arthropl asty. PROCEDURE IN DETAIL: After consent and identification, the patient was brought to the operating room and placed in the supine position on the operating table. After induction of a general endotracheal a nesthesia and appropriate monitoring, the patient was transferred to a left lateral decubitus positio n on the peg board. Padded pegs were placed at the left ischium, the sacrum, the pubic symphysis, and the sternum. Catheter had been placed prior to positioning in the lateral decubitus position. The [facility] lower extremity was then prepped and draped free in the usual hind quarter fashion for hip surger y. After an appropriate timeout was conducted, we mapped flexed the hip to 45 degrees and placed a longi tudinal incision paralleling the lateral border of the proximal femur, extending 10 cm above the grea ter trochanter and approximately 15 cm below the greater trochanter. The skin and subcutaneous tissue was divided with a 10-blade scalpel and electrocautery down to the i liotibial band. A Conklin elevator was used to debride fat away from the iliotibial band and the externa l fascia, the tensor fascia swathi, and gluteus felecia muscle. Electrocautery was used to make a 2 cm rent in the iliotibial band directly over the lateral aspect of the greater trochanter. Pacheco scissors were inserted and used to divide the iliotibial band longitudinally in line with its fibers distally and the external fascia, the tensor fascia swathi proximally along with the beginning of the gluteus m aximus fascia. Once we had started this dissection, we used blunt dissection to complete the proximal dissection in line with the gluteus felecia fibers. Charnely retractor was then placed. We debrided the trochanteric bursa, exposing the lateral aspect of the proximal femur and the gluteus musculature . We used the electrocautery to do a subperiosteal reflection of the anterior 1/3 of the gluteus medi us muscle and anterior portion of the vastus lateralis muscle and a digastric sleeve over the anterio r portion of the greater trochanter. We then dissected the gluteus minimus muscle from the superior p ortion of the hip capsule. With the hip capsule exposed, Cobra retractors were placed superior and in ferior to the femoral neck. We made an H shaped capsulotomy and transferred our Cobra retractors intr acapsulary around the femoral neck. A T-handle corkscrew was then inserted into the femoral head and used to help dislocate the hip from the hip socket to allow completion of our capsular reflection shen n towards the lesser trochanter and over the superior neck. This was carried back to the piriformis f live and we performed a partial release of the piriformis tendon. With the hip flexed at approximatel y 45 degrees and externally rotated at 90 degrees, we mapped out a neck cut 1 cm proximal to the less er trochanter along the calcar at a 45 degree angle towards the superior base of the femoral neck. A reciprocating saw was used to make this cut. We completed the superior portion of the cut with an ost eotome and removed the femoral head and neck. We then sized the femoral head to a 48 mm diameter. We then began at a 45 mm diameter reamer and ream ed the acetabulum sequentially in 1 mm increments up to a 55 mm diameter. A 56 mm trial was inserted and noted to have excellent interference fit. This trial was then removed. We then sequentially broac hed the femur beginning with a size 7 broach, broaching up to a size 10 broach with excellent interfe rence fit. With the broach in place, we inserted a standard neck and modular head construct with a 36 mm outer diameter. We placed a 36 mm trial acetabulum into the acetabulum and performed a reduction. Excellent range of motion was achieved with good anterior and posterior stability. Shuck test was no rmal. Trials were then removed and we impacted a 4-hole x 56 mm outer diameter acetabular shell into the acetabulum. Excellent interference fit was noted and no screws were necessary. We then inserted t he ultra high molecular weight polyethylene 36 mm inner diameter acetabular liner. We opened and inse rted a Taperloc porous coated stem (10 x 140 mm) with standard offset into the femoral canal. Excelle nt rotational stability was noted. We placed the 36 mm outer diameter modular head component on the t runnion and impacted it into position. We then performed a reduction and again tested range of motion and shuck and noted both to be satisfactory. We then thoroughly irrigated the hip joint. We injected the surrounding capsule with our analgesic mi x, totaling 60 mL. We repaired the capsule with a running interlocked #5 Ethibond suture. We repaired the anterior digastric sleeve of the anterior gluteus medius and anterior portion of the vastus late ralis to drill holes in the greater trochanter with a #2 FiberWire suture x4. We repaired the iliotib ial band and external fascia of the tensor fascia swathi and gluteus felecia with a running interlocked #1 Vicryl suture. More irrigation was performed. Subcuticular closure was carried out with interrupt ed 2-0 Vicryl sutures followed by a running 3-0 Monocryl suture. Mastisol and Steri-Strips were then applied followed by a sterile Aquacel dressing. Prior to application of the Aquacel dressing, we inje cted the hip wound with 30 mL of 0.5% Marcaine without epinephrine. After placing the Aquacel dressing, the patient was extubated and transferred to the recovery room in good condition, having tolerated the procedure well. JOB #: [id number] EXT JOB #:[id number]
== END 2016-08-10 11:51 | disposition home or self-care (01) | DRG 470 ==
LOC: MS 08:44
PROVIDERS: ADMIT Orthopaedic Surgery; ATTEND Physician Assistant
PROC: 0SR902Z Replacement of Right Hip Joint with Metal on Polyethylene Synthetic Substitute, Open Approach (ICD-10-PCS; principal; 2016-08-07 09:45)
DX: M16.11 Unilateral primary osteoarthritis, right hip (principal); Z68.41 Body mass index [BMI] 40.0-44.9, adult; G89.29 Other chronic pain; E66.01 Morbid (severe) obesity due to excess calories; J45.909 Unspecified asthma, uncomplicated; K21.9 Gastro-esophageal reflux disease without esophagitis; E03.9 Hypothyroidism, unspecified; I15.2 Hypertension secondary to endocrine disorders; E78.2 Mixed hyperlipidemia; F41.1 Generalized anxiety disorder; F32.9 Major depressive disorder, single episode, unspecified; F40.240 Claustrophobia; M17.0 Bilateral primary osteoarthritis of knee; F98.8 Other specified behavioral and emotional disorders with onset usually occurring in childhood and adolescence; L71.9 Rosacea, unspecified; Z96.641 Presence of right artificial hip joint; Z90.49 Acquired absence of other specified parts of digestive tract; Z87.891 Personal history of nicotine dependence; Z79.1 Long term (current) use of non-steroidal anti-inflammatories (NSAID); Z79.891 Long term (current) use of opiate analgesic
CPT/HCPCS: 36415; 80053; 82607; 82728; 83036; 83540; 83615; 84466; 85025; 85044